=== PATIENT | female | born 1940 | race Caucasian/White ===

== ENCOUNTER → 2016-06-03 | Outpatient (CLI) | payer OTHER ==
--- NOTE | 2016-06-03 11:39 | DX ---
Chest, Two Views at 1048 hours on June 03, 2016 History: S52.522A neck stability, rheumatoid arthropathy. Comparison: December 2008. Findings: Cardiac silhouette is within normal range. Atherosclerotic tortuous aorta. Thoracolumbar tr anspedicular screws and fusion rods partially visualized. Moderate degenerative disk disease lower th oracic spine without thoracic compression fractures. No pneumonia, congestive heart failure, pleural effusion, or pneumothorax. Impression: 1. Atherosclerotic tortuous aorta. 2. Thoracolumbar fusion hardware with lower thoracic degenerative disk disease. 3. No acute pulmonary disease.
--- NOTE | 2016-06-03 11:45 | DX ---
Cervical Spine, 4 Views Including Flexion and Extension History: S52.522A neck stability, rheumatoid arthropathy. Technique: AP, lateral neutral, lateral flexion and lateral extension views of the cervical spine. Findings: No cervical compression fractures. Multilevel moderate to severe bilateral facet arthropath y from C4-C5 through C7-T1. No destructive osseous lesions. Flexion and extension views demonstrate no evidence for instability at C2-C3, or C3-C4. At C4-C5, there is minimal grade 1 anterolisthesis 2 mm on the neutral position which does not change significantly on the flexion and extension views. At C5-C6, there is grade 1 anterolisthesis 4 mm on the neutral without significant change on the flex ion or extension views. At C6-C7, there is grade 2 anterolisthesis 6 mm on neutral position which does not change significant ly on the flexion or extension views. Impression: 1. C6-C7 grade 2 degenerative anterolisthesis secondary to severe bilateral facet arthropathy without definite instability. 2. C5-C6 grade 1 anterolisthesis secondary to severe bilateral facet arthropathy without significant instability on flexion-extension views. 3. C4-C5 minimal grade 1 anterolisthesis secondary to severe bilateral facet arthropathy without defi nite instability.
== END ==
LOC: BMCIMAGING 10:32
PROVIDERS: ATTEND Specialist
DX: Z01.818 Encounter for other preprocedural examination (principal); M43.12 Spondylolisthesis, cervical region; M46.92 Unspecified inflammatory spondylopathy, cervical region; I70.0 Atherosclerosis of aorta; Z98.1 Arthrodesis status

== ENCOUNTER 2017-03-19 09:21 | Emergency (ER) | payer OTHER ==
[2017-03-19] MEDS ORDERED: LET GEL TOPICAL 1 EA SYR TP ONE (09:53)
[2017-03-19 10:08] LABS: % IMMATURE GRANULYOCYTES 0.2 % (0.0-1.1); ABSOLUTE IMMATURE GRANULOCYTES 0.02 10^3/uL (0.00-0.10); ADD DIFF? NO; ADD MORPH? NO; ADD SCAN? NO; ATYPICAL LYMPHOCYTE FLAG 10 (0-99); FRAGMENT RBC FLAG 0 (0-99); HEMOGLOBIN 12.2 g/dL (12.6-16.3); LEFT SHIFT FLG 0 (0-99); LIPEMIA HEMOLYSIS FLAG 80 (0-99); MEAN CELL HEMOGLOBIN 31.7 pg (27.9-34.1); MEAN CELL VOLUME 96.1 fL (81.5-99.8); MEAN PLATELET VOLUME 8.7 fL (8.7-11.7); PLATELET CLUMPS FLAG 0 (0-99); PLATELET COUNT 341 10^3/uL (150-400); RED BLOOD CELL COUNT 3.85 10^6/uL (4.18-5.33)
--- NOTE | 2017-03-19 10:13 | CPEKG ---
Heart Rate: 113 RR Interval: 531 P-R Interval: 164 QRSD Interval: 72 QT Interval: 336 QTC Interval: 461 P Potter: 63 QRS Potter: 32 T Wave Potter: 9 EKG Severity - BORDERLINE ECG - EKG Impression: SINUS TACHYCARDIA EKG Impression: BORDERLINE INFERIOR Q WAVES Electronically Signed By: Sin Davis 19-Mar-2017 11:45:54
[2017-03-19 10:23] LABS: ANION GAP 16 mEq/L (8-16); CALCIUM 8.9 mg/dL (8.5-10.4); CARBON DIOXIDE 25 mEq/l (22-31); CHLORIDE 103 mEq/L (97-110); CREATININE 0.9 mg/dL (0.6-1.0); GLOMERULAR FILTRATION RATE > 60; GLUCOSE 152 mg/dL (70-100); POTASSIUM 3.9 mEq/L (3.5-5.2); SODIUM 144 mEq/L (134-144)
--- NOTE | 2017-03-19 10:35 | EDPHY ---
H & P Stated Complaint: fall and hit face at 0800, Denies LOC and or syncope Time Seen by Provider: 03/19/17 09:38 HPI/ROS: This patient reports that she was caring several items in her arms this morning while walking her home and caught her toe on the floor tripping on carpet and falling sustaining facial lacerations to the cheek and forehead left side. She reports mild pain at the site of the laceration in cheek pain. She also reports a mild headache "1.5/10 ". The patient reports no LOC or feeling of being dazed. The patient reports that this was a mechanical fall. However Her is concerned that she has had generalized weakness over the past week or 2. She also had nausea and vomiting few nights ago with ongoing nausea currently. The patient thinks she has had less p.o. intake than usual due to her nausea. ROS: Constitutional: No recent fevers or chills. Positive generalized weakness per HEENT: No URI symptoms recently. She denies any nasal injury from the fall or dental injury. Neuro: No change in hearing. No visual changes since the fall. No focal numbness tingling weakness. No acute confusion. Pulmonary: No shortness of breath, or cough. Cardiovascular: She denies any chest pain palpitations or lightheadedness. GI: As per HPI. No hematemesis. She reports chronic constipation that she attributes her OxyContin. Her last bowel movement was to 3 days ago which is not uncommon for her. : No urinary symptoms. Integumentary: No skin rash or pallor is noted. Complete review of symptoms is otherwise negative. Source: Patient Exam Limitations: No limitations - Personal History Current Tetanus Diphtheria and Acellular Pertussis (TDAP): Yes - Medical/Surgical History PMH: Her thinks that they increased her Synthroid dose approximately 6 months ago. Hx Asthma: Yes Hx Chronic Respiratory Disease: No Hx Diabetes: No Hx Cardiac Disease: No Hx Renal Disease: No Hx Cirrhosis: No Hx Alcoholism: No Hx HIV/AIDS: No Hx Splenectomy or Spleen Trauma: No Other PMH: RA. Hypothyroid. Cholecystectomy. hysterectomy. Fusion for scoliosis. left wrist repair - Social History Smoking Status: Never smoked Alcohol Use: None Drug Use: None Additional Social History: Here with and daughter. drove her here by private vehicle. - Physical Exam Exam: Physical exam: Vital signs are normal except for tachycardia to 117 on arrival and mild hypertension at 155/94 and 93% room air O2 sat. General: Patient is in no acute distress. HEENT: The patient has left zygoma swelling and tenderness. No crepitance. There are or 2 associated lacerations a 2.3 cm infraorbital laceration at the zygoma full-thickness with mild bleeding and a supraorbital laceration just above the eyebrow 3 cm in length, subcutaneous tissue evident no muscle injury or deeper structures injured. No foreign body. Mild bleeding. Nose atraumatic. Ears: Clear bilaterally with no hemotympanum. Oropharynx: No dental trauma or malocclusion. No intraoral lacerations. Eyes: Pupils are equal and reactive to light. Extraocular motions are intact. Optic fundi: Clear with no papilledema or hemorrhage. Neck: Trachea is midline with no stridor. The patient has no midline neck tenderness and retains a full range of motion without increase in pain. Lungs: Clear to auscultation bilaterally Cardiac: Regular rate and rhythm no murmur gallop or rub. Chest: Nontender. Abdomen: Soft nontender no organomegaly Back: Nontender Extremities: Atraumatic Neuro: GCS of 15. Cranial nerves II through XII intact. Cerebellar exam is normal as judged by symmetric rapid hand movements bilaterally. No pronator drift. No sensory or motor deficits are appreciated. Initial differential diagnosis: Mechanical fall with minor head injury with zygoma hematoma, zygoma fracture, facial lacerations, dehydration, viral illness , pulmonary embolism, pneumonia, UTI, metabolic disarray, functional hyper or hypothyroidism Constitutional: Initial Vital Signs Temperature (C) 36.3 C 03/19/17 09:29 Heart Rate 117 H 03/19/17 09:29 Respiratory Rate 20 03/19/17 09:29 Blood Pressure 155/94 H 03/19/17 09:29 O2 Sat (%) 93 03/19/17 09:29 O2 Delivery Mode Room Air Allergies/Adverse Reactions: Iodinated Contrast- Oral and IV Dye Allergy (Verified 03/19/17 09:40) Home Medications: Medication Instructions Recorded Ambien 03/19/17 DULoxetine 03/19/17 Enalapril Maleate 03/19/17 Enbrel 03/19/17 Folic Acid 03/19/17 HYDROcodone BITARTRATE 03/19/17 Methotrexate 03/19/17 Nitrofurantoin Macrobid [Macrobid 100 mg PO BID #10 cap 03/19/17 100 mg (RX)] Oxycontin 03/19/17 Synthroid 03/19/17 Medical Decision Making - Diagnostics EKG Interpretation: 12 lead EKG performed shortly after arrival indication weakness and fall with tachycardia Sinus tachycardia 113 Intervals: Normal throughout [place]: Normal throughout ST segments: Normal throughout Overall assessment sinus tachycardia with borderline inferior Q-waves. No acute ST abnormalities by my interpretation Imaging Results: Imaging Impressions Chest X-Ray 03/19/17 09:54 Impression: Minimal left basilar atelectasis. No pneumothorax or effusion. Facial Bones X-Ray 03/19/17 09:55 Impression: Negative. No acute fracture. Facial bones: Negative for fracture by my interpretation Chest x-ray: No pneumonia or cardiomegaly. Appreciate no other focal abnormalities. Imaging: I viewed and interpreted images myself Procedures: The 2 wounds: 1st wound is 2.3 cm to the left zygoma region, full-thickness, subcutaneous tissue evident mild bleeding 2nd wound is a above the left eyebrow 3 cm in length full-thickness. The wound was copiously irrigated with saline. The wound was explored for foreign bodies and none were found. The wound was prepped and draped in the normal sterile fashion. The wound was anesthetized using let solution followed by 0.5% Marcaine mixed 50 50 with 1% plain lidocaine -27 gauge needle, 3 mL injected into upper wound and 2.5 mL into lower wound with good effect. The edges of the 1st wound described above-2.2 cm with 5 0 Ethilon-10 running sutures and the 2nd wound-3 cm closed with 11 running sutures with 5 0 Ethilon both with good hemostasis and cosmesis. The patient tolerated the procedure well. There were No complications. Procedure was performed by myself with her at the bedside. ED Course/Re-evaluation: IV normal saline bolus-500 cc normal saline bolus x2 with reduction of her tachycardia from initial [id number] down to 105. Patient also tolerated p.o. fluids while here A review of her labs reveals a normal white blood cell count no other significant abnormalities on CBC, normal basic metabolic panel with exception of slightly elevated glucose 152, a low TSH, however free T3 and T4 are normal. Discussion: Given patient's age and abnormal vital signs with tachycardia on arrival and history of generalized weakness over the past week or so per , pursued a medical workup on this patient presented with fall with minor head injury. Clinically no evidence of concussion or intracranial bleed. No evidence of bony injury. Rule out facial fracture with normal facial bone x- rays. I think that her generalized weakness is attributable to her dehydration. Her vomiting a few days ago and ongoing nausea may be from a viral illness but no clinical evidence of surgical abdomen, cholecystitis or other concerning findings. She responded well to IV hydration with reduction in her pulse to near normal and subjective improvement. We ruled out significant metabolic abnormalities with workup today and also rule out significant hypo or hyperthyroid with normal T3 and T4 levels. Patient has 5 white cells and some bacteria on her UA as well as positive leuk esterase. Given associated mild weakness, will treat her for cystitis. She is given a 1st dose of Macrobid p.o.. At the time discharge patient is ambulatory and feeling well. - Data Points Laboratory Results: Laboratory Results 03/19/17 10:00 03/19/17 10:00 03/19/17 03/19/17 03/19/17 12:30 10:00 10:00 WBC RBC Hgb Hct MCV MCH MCHC RDW Plt Count MPV Neut % (Auto) Lymph % (Auto) [place] % (Auto) Eos % (Auto) Baso % (Auto) Nucleat RBC Rel Count Absolute Neuts (auto) Absolute Lymphs (auto) Absolute Monos (auto) Absolute Eos (auto) Absolute Basos (auto) Absolute Nucleated RBC Immature Gran % Immature Gran # D-Dimer 0.48 ug/mLFEU ug/mLFEU (0.00-0.50) Sodium Potassium Chloride Carbon Dioxide Anion Gap BUN Creatinine Estimated GFR Glucose Calcium Troponin I NT-Pro-B Natriuret Pep TSH Free T4 1.88 ng/dL ng/dL (0.59-2.19) Free T3 4.13 pg/mL pg/mL (2.77-5.27) Urine Color YELLOW Urine Appearance CLEAR Urine pH 5.5 (5.0-7.5) Ur Specific Round O 1.010 (1.002-1.030) Urine Protein NEGATIVE (NEGATIVE) Urine Ketones NEGATIVE (NEGATIVE) Urine Blood NEGATIVE (NEGATIVE) Urine Nitrate NEGATIVE (NEGATIVE) Urine Bilirubin NEGATIVE (NEGATIVE) Urine Urobilinogen 0.2 EU EU (0.2-1.0) Ur Leukocyte Esterase TRACE H (NEGATIVE) Urine RBC 1-3 /hpf /hpf (0-3) Urine WBC 3-5 /hpf H /hpf (0-3) Ur Epithelial Cells TRACE /lpf /lpf (NONE-1+) Amorphous Sediment TRACE /hpf /hpf (NONE-1+) Urine Bacteria TRACE /hpf H /hpf (NONE SEEN) Hyaline Casts 10-15 /lpf H /lpf (0-1) Urine Mucus 2+ /lpf H /lpf (NONE-1+) Urine Glucose NEGATIVE (NEGATIVE) 03/19/17 03/19/17 10:00 10:00 WBC 8.25 10^3/uL 10^3/uL (3.80-9.50) RBC 3.85 10^6/uL L 10^6/uL (4.18-5.33) Hgb 12.2 g/dL L g/dL (12.6-16.3) Hct 37.0 % L % (38.0-47.0) MCV 96.1 fL fL (81.5-99.8) MCH 31.7 pg pg (27.9-34.1) MCHC 33.0 g/dL g/dL (32.4-36.7) RDW 14.0 % % (11.5-15.2) Plt Count 341 10^3/uL 10^3/uL (150-400) MPV 8.7 fL fL (8.7-11.7) Neut % (Auto) 56.4 % % (39.3-74.2) Lymph % (Auto) 27.0 % % (15.0-45.0) [place] % (Auto) 11.9 % % (4.5-13.0) Eos % (Auto) 3.9 % % (0.6-7.6) Baso % (Auto) 0.6 % % (0.3-1.7) Nucleat RBC Rel Count 0.0 % % (0.0-0.2) Absolute Neuts (auto) 4.65 10^3/uL 10^3/uL (1.70-6.50) Absolute Lymphs (auto) 2.23 10^3/uL 10^3/uL (1.00-3.00) Absolute Monos (auto) 0.98 10^3/uL H 10^3/uL (0.30-0.80) Absolute Eos (auto) 0.32 10^3/uL 10^3/uL (0.03-0.40) Absolute Basos (auto) 0.05 10^3/uL 10^3/uL (0.02-0.10) Absolute Nucleated RBC 0.00 10^3/uL 10^3/uL (0-0.01) Immature Gran % 0.2 % % (0.0-1.1) Immature Gran # 0.02 10^3/uL 10^3/uL (0.00-0.10) D-Dimer Sodium 144 mEq/L mEq/L (134-144) Potassium 3.9 mEq/L mEq/L (3.5-5.2) Chloride 103 mEq/L mEq/L (97-110) Carbon Dioxide 25 mEq/l mEq/l (22-31) Anion Gap 16 mEq/L mEq/L (8-16) BUN 15 mg/dL mg/dL (7-23) Creatinine 0.9 mg/dL mg/dL (0.6-1.0) Estimated GFR > 60 Glucose 152 mg/dL H mg/dL (70-100) Calcium 8.9 mg/dL mg/dL (8.5-10.4) Troponin I < 0.012 ng/mL ng/mL (0.000-0.034) NT-Pro-B Natriuret Pep 154 pg/mL pg/mL (0-450) TSH 0.204 uIU/mL L uIU/mL (0.465-4.680) Free T4 Free T3 Urine Color Urine Appearance Urine pH Ur Specific Round O Urine Protein Urine Ketones Urine Blood Urine Nitrate Urine Bilirubin Urine Urobilinogen Ur Leukocyte Esterase Urine RBC Urine WBC Ur Epithelial Cells Amorphous Sediment Urine Bacteria Hyaline Casts Urine Mucus Urine Glucose Medications Given: Discontinued Medications Sodium Chloride (Ns) 1,000 mls @ 0 mls/hr IV ONCE ONE PRN Reason: Wide Open Stop: 03/19/17 11:19 Last Admin: 03/19/17 11:20 Dose: 1,000 mls Nitrofurantoin Macrocrystals (Macrobid) 100 mg PO EDNOW ONE PRN Reason: Protocol Stop: 03/19/17 13:08 Last Admin: 03/19/17 13:17 Dose: 100 mg Tetracaine/Epinephrine/Lidocaine (Let Gel Topical) 1 ea TP EDNOW ONE Stop: 03/19/17 09:54 Last Admin: 03/19/17 10:48 Dose: 1 ea Departure - Departure Disposition: Home, Routine, Self-Care Clinical Impression: Dehydration, Cystitis Face lacerations Qualifiers: Encounter type: initial encounter Qualified Code(s): S01.81XA - Laceration without foreign body of other part of head, initial encounter Minor head injury Qualifiers: Encounter type: initial encounter Qualified Code(s): S00.90XA - Unspecified superficial injury of unspecified part of head, initial encounter Fall Qualifiers: Encounter type: initial encounter Qualified Code(s): W19.XXXA - Unspecified fall, initial encounter Condition: Good Instructions: Dehydration (ED), Care For Your Stitches (ED), Urinary Tract Infection in Women (ED) Additional Instructions: Diagnosis: 1. Facial lacerations 2. Minor head injury 3. Fall 4. Dehydration 5. Cystitis (bladder infection) Plan: Drink plenty of fluids-increase your fluid intake daily. Consider trying to gradually reduce your OxyContin daily intake. Continue stool softeners for constipation as needed Tylenol for headache if Needed or facial pain. Macrobid antibiotic Ice to face with towel around ice to prevent frostbite-20 min at a time few times a day for the next 2 days to help reduce swelling. Keep your facial wound clean and dry for the next 2 days, then clean daily with warm soapy water. Return for suture removal in 7 days. Return sooner if he develops redness, discharge or other concerns for infection. Referrals: Mariel Maldonado MD [Primary Care Provider] - As per Instructions Prescriptions: Nitrofurantoin Macrobid [Macrobid 100 mg (RX)] 100 mg PO BID #10 cap
[2017-03-19 10:55] LABS: TROPONIN I < 0.012 ng/mL (0.000-0.034)
[2017-03-19] MEDS ORDERED: NS 1,000 ML IV ONE (11:18)
[2017-03-19 12:39] LABS: COLOR YELLOW; LEUKOCYTE ESTERASE,URINE TRACE (NEGATIVE); NITRITE,URINE NEGATIVE (NEGATIVE); PH,URINE 5.5 (5.0-7.5)
[2017-03-19 13:02] LABS: AMORPHOUS TRACE /hpf (NONE-1+); BACTERIA TRACE /hpf (NONE SEEN); MUCUS 2+ /lpf (NONE-1+)
[2017-03-19] MEDS ORDERED: NITROFURANTOIN MACROBID 100 MG CAP PO ONE (13:07)
[2017-03-26 12:03] VITALS: BP 133/71; PULSE 89; RESP 20; TEMP 97.7; O2SAT 94
== END 2017-03-19 13:34 | disposition home or self-care (01) ==
LOC: CED 09:21
PROC: 0HQ1XZZ Repair Face Skin, External Approach (ICD-10-PCS; principal; 2017-03-19)
DX: S01.81XA Laceration without foreign body of other part of head, initial encounter (principal); E86.0 Dehydration; N30.90 Cystitis, unspecified without hematuria; B96.89 Other specified bacterial agents as the cause of diseases classified elsewhere; J45.909 Unspecified asthma, uncomplicated; W01.198A Fall on same level from slipping, tripping and stumbling with subsequent striking against other object, initial encounter; Y92.009 Unspecified place in unspecified non-institutional (private) residence as the place of occurrence of the external cause; Y99.8 Other external cause status; Y93.01 Activity, walking, marching and hiking
CPT/HCPCS: 70150-PO; 71020-PO; 80048-PO; 81003-PO; 81015-PO; 83880-PO; 84439-PO; 84443-PO; 84481-PO; 84484-PO; 85025-PO; 85378-PO